=== PATIENT | female | born 1995 | race Caucasian/White ===

== ENCOUNTER 2016-09-02 13:44 | Emergency (ER) | payer BC ==
[~2016-09-02] VITALS: Ht 157.5 cm; Wt 66.1 kg
[~2016-09-02 13:44] MED LIST: ALBU1AER9 INH
[2016-09-02 13:49] VITALS: Ht 157.5 cm; Wt 66.1 kg
[2016-09-02] MEDS ORDERED: ALBU18002 INH (13:57)
--- NOTE | 2016-09-02 15:15 | EMERGENCY ROOM VISIT NOTE ---
History Report prepared by Rubi: Jelani Bensno Under the Supervision of: Dr. Jeison Bocanegra M.D. First contact with patient: 15:05 Chief Complaint: VAGINAL BLEEDING Stated Complaint: 4 WKS PREG,BLEEDING/CRAMPING History of Present Illness The patient is a 21 year old female who presents to the Emergency Room with complaints of persistent vaginal bleeding beginning earlier today, She notes that she is 4 weeks and used a home test 3 days ago noting she was . This is her second ; she did not have any issues with her first or . She has been otherwise fine, but notes she was crampy this morning, and noticed some spotting this afternoon, but has not been using multiple pads. The patient denies any fevers, chills, recent trauma or falls, chest pain, shortness of breath, or any urinary symptoms. She admits to having some nausea. She notes she followed with [facility] for her last . She reports her last period was about 1 month ago. Source of History: patient Onset: this afternoon Position: other (vagina) Quality: other (vaginal bleeding) Timing: other (persistent) Associated Symptoms: + nausea, No SOB, No chest pain, No chills, No fevers, No urinary symptoms Review of Systems See HPI for pertinent positives & negatives. A total of 10 systems reviewed and were otherwise negative. Past Medical & Surgical Medical Problems: (1) ASTHMA, UNSPECIFIED (2) Panic attack (3) TOBACCO USE DISORDER Family History No significant family history Social History Smoking Status: Current Every Day Smoker Alcohol Use: none Marital Status: single Occupation Status: employed Current/Historical Medications Scheduled Albuterol Sulfate (Proair Respiclick), 2 PUFF INH QID Allergies Coded Allergies: Dust (Unverified Allergy, Unknown, UNKNOWN, 09/02/16) POLLEN (Unverified Allergy, Unknown, UNKNOWN, 09/02/16) Physical Exam Vital Signs Date Time Temp Pulse Resp B/P Pulse Ox O2 Delivery O2 Flow Rate FiO2 09/02/16 17:30 37.0 74 18 107/55 100 09/02/16 17:14 74 18 107/55 100 Room Air 09/02/16 15:20 77 18 104/59 100 Room Air 09/02/16 13:49 37.0 91 18 107/75 99 Room Air Physical Exam GENERAL: Patient is well appearing and in minimal distress. HEENT: No acute trauma, normocephalic atraumatic, mucous membranes moist, no nasal congestion, no scleral icterus. NECK: No stridor, no adenopathy, no meningismus, trachea is midline. LUNGS: No dyspnea. Clear to auscultation and equal bilaterally. No wheeze, no rhonchi. HEART: Regular rate and rhythm. No murmurs, rubs, gallops appreciated. ABDOMEN: Soft, nontender, bowel sounds positive, no masses appreciated, no peritonitis. BACK: No midline tenderness, no CVA tenderness EXTREMITIES: Normal motion all extremities, no cyanosis, no edema. NEUROLOGIC: Alert and oriented, no acute motor or sensory deficits, no focal weakness, cranial nerves grossly intact. SKIN: No rash, no jaundice, no diaphoresis. Medical Decision & Procedures ER Provider Diagnostic Interpretation: Radiology results and stated below per my review and radiologist interpretation: <14 WKS SINGLE ULTRASOUND FINDINGS: The uterus is retroflexed. Otherwise, the uterus and ovaries are within normal limits. The endometrial stripe measures 6 mm in thickness. No adnexal masses. No intrauterine gestational sac identified. Trace pelvic free fluid. IMPRESSION: Normal uterus and ovaries. No evidence for an intrauterine gestational sac. Trace pelvic free fluid. In the setting of a positive test this could represent an early intrauterine , nonvisualized ectopic , or recent spontaneous . Correlation with beta-hCG and/or pelvic ultrasound follow-up is recommended. Electronically signed by: Marcus Juarez M.D. 09/02/2016 4:41 PM Dictated Date/Time: 09/02/2016 4:38 PM Laboratory Results 09/02/16 15:26 Red Blood Count 4.33, Mean Corpuscular Volume 92.1, Mean Corpuscular Hemoglobin 31.9, Mean Corpuscular Hemoglobin Concent 34.6, Mean Platelet Volume 9.5, Neutrophils (%) (Auto) 59.0, Lymphocytes (%) (Auto) 29.5, Monocytes (%) (Auto) 6.9, Eosinophils (%) (Auto) 3.9, Basophils (%) (Auto) 0.5, Neutrophils # (Auto) 5.13, Lymphocytes # (Auto) 2.56, Monocytes # (Auto) 0.60, Eosinophils # (Auto) 0.34, Basophils # (Auto) 0.04 09/02/16 15:26 Test 09/02/16 14:20 09/02/16 15:26 Urine Color YELLOW Urine Appearance CLEAR (CLEAR) Urine pH 5.0 (4.5-7.5) Urine Specific [place] 1.023 (1.000-1.030) Urine Protein NEG (NEG) Urine Glucose (UA) NEG (NEG) Urine Ketones NEG (NEG) Urine Occult Blood 3+ (NEG) Urine Nitrite NEG (NEG) Urine Bilirubin NEG (NEG) Urine Urobilinogen NEG (NEG) Urine Leukocyte Esterase TRACE (NEG) Urine WBC (Auto) 1-5 /hpf (0-5) Urine RBC (Auto) 5-10 /hpf (0-4) Urine Hyaline Casts (Auto) 1-5 /lpf (0-5) Urine Epithelial Cells (Auto) >30 /lpf (0-5) Urine Bacteria (Auto) NEG (NEG) Urine Yeast (Auto) PRESENT (NONE PRSENT) Urine Test POS (NEG) White Blood Count 8.69 K/uL (4.8-10.8) Red Blood Count 4.33 M/uL (4.2-5.4) Hemoglobin 13.8 g/dL (12.0-16.0) Hematocrit 39.9 % (37-47) Mean Corpuscular Volume 92.1 fL (80-100) Mean Corpuscular Hemoglobin 31.9 pg (25-34) Mean Corpuscular Hemoglobin Concent 34.6 g/dl (32-36) Platelet Count 238 K/uL (130-400) Mean Platelet Volume 9.5 fL (7.4-10.4) Neutrophils (%) (Auto) 59.0 % Lymphocytes (%) (Auto) 29.5 % Monocytes (%) (Auto) 6.9 % Eosinophils (%) (Auto) 3.9 % Basophils (%) (Auto) 0.5 % Neutrophils # (Auto) 5.13 K/uL (1.4-6.5) Lymphocytes # (Auto) 2.56 K/uL (1.2-3.4) Monocytes # (Auto) 0.60 K/uL (0.11-0.59) Eosinophils # (Auto) 0.34 K/uL (0-0.5) Basophils # (Auto) 0.04 K/uL (0-0.2) RDW Standard Deviation 42.4 fL (36.4-46.3) RDW Coefficient of Variation 12.4 % (11.5-14.5) Immature Granulocyte % (Auto) 0.2 % Immature Granulocyte # (Auto) 0.02 K/uL (0.00-0.02) Anion Gap 5.0 mmol/L (3-11) Est Creatinine Clear Calc Drug Dose 94.0 ml/min Estimated GFR () 115.2 Estimated GFR (Non- 99.4 BUN/Creatinine Ratio 12.1 (10-20) Calcium Level 8.3 mg/dl (8.5-10.1) Human Chorionic Gonadotropin, Quant 201 mIU/mL Laboratory results as reviewed by me. ED Course 1506: The patient was evaluated in room A3. A complete history and physical exam was performed. 1722: The patient is requesting to be discharged, and notes she needs to leave. 1725: Reevaluated the patient. Discussed results and discharge instructions: She verbalized understanding and agreement. The patient is ready for discharge. Medical Decision Differential: Menstrual Bleeding, Miscarriage, Ectopic , Bleeding Dyscrasia, amongst other pathologies entertained. 21 yr old female with one previous uncomplicated arrives with complaint of light vaginal spotting with positive test 3 days ago. HCG is only 200 and no IUP noted. No free fluid noted on US either. Suspect this is very early or miscarriage. I do not believe this is ectopic but clearly it is very early and no IUP noted thus instructions with patient. No evidence ongoing infection. A+ Blood type. 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 Aware that it is a very busy post football game weekend and thus the slight delays in testing. She is aware she must follow up with PCP or OB in next 2-3 days for repeat evaluation, and RTED immediately if worsening or other concerns. Stable and walking around room requesting discharge. Impression Primary Impression: Vaginal bleeding in Scribe Attestation The scribe's documentation has been prepared under my direction and personally reviewed by me in its entirety. I confirm that the note above accurately reflects all work, treatment, procedures, and medical decision making performed by me. Departure Information Dispostion Home / Self-Care Referrals No Doctor, Assigned (PCP) Patient Instructions Bleeding Early Preg, My [facility] Additional Instructions You must follow up with your Primary Provider or your FLOOR COVERER provider in the next 2-3 days for repeat blood testing and further evaluation. Return immediately if severe pain, heavy bleeding, passing out or other concerns. We are always here to help. Problem Qualifiers Primary Impression: Vaginal bleeding in Trimester: first trimester Qualified Codes: O46.91 - Antepartum hemorrhage, unspecified, first trimester
[2016-09-02 15:27] LABS: URINE APPEARANCE CLEAR (CLEAR); URINE BILIRUBIN NEG (NEG); URINE COLOR YELLOW; URINE EPITHELIAL CELL AUTO >30 /lpf (0-5); URINE NITRITE NEG (NEG); URINE SPECIFIC GRAVITY 1.023 (1.000-1.030); UROBILINOGEN NEG (NEG); ZZUR CULT IF INDIC CLEAN CATCH YES
[2016-09-02 15:30] LABS: MANUAL MICROSCOPIC REQUIRED? NO; REVIEW REQ? YES
[2016-09-02 15:36] LABS: BASO % 0.5 %; BASO ABS # 0.04 K/uL (0-0.2); COMPLETE YES; EOS % 3.9 %; HEMATOCRIT 39.9 % (37-47); IG% 0.2 %; LYMPH % 29.5 %; LYMPH ABS # 2.56 K/uL (1.2-3.4); MEAN CELL VOLUME 92.1 fL (80-100); MEAN CORPUSCULAR HEMOGLOBIN 31.9 pg (25-34); MEAN CORPUSCULAR HGB CONC 34.6 g/dl (32-36); MEAN PLATELET VOLUME 9.5 fL (7.4-10.4); MONO % 6.9 %; PLATELET COUNT 238 K/uL (130-400); RED BLOOD COUNT 4.33 M/uL (4.2-5.4); WHITE BLOOD COUNT 8.69 K/uL (4.8-10.8)
[2016-09-02 15:53] LABS: BUN/CREATININE RATIO 12.1 (10-20); CALCIUM 8.3 mg/dl (8.5-10.1); CREATININE 0.83 mg/dl (0.60-1.20); POTASSIUM 3.8 mmol/L (3.5-5.1)
--- NOTE | 2016-09-02 16:43 | DIAGNOSTIC IMAGING REPORT ---
<14 WKS SINGLE ULTRASOUND CLINICAL HISTORY: Vaginal bleeding early COMPARISON STUDY: ultrasound 06/26/2013. FINDINGS: The uterus is retroflexed. Otherwise, the uterus and ovaries are within normal limits. The endometrial stripe measures 6 mm in thickness. No adnexal masses. No intrauterine gestational sac identified. Trace pelvic free fluid. IMPRESSION: Normal uterus and ovaries. No evidence for an intrauterine gestational sac. Trace pelvic free fluid. In the setting of a positive test this could represent an early intrauterine , nonvisualized ectopic , or recent spontaneous . Correlation with beta-hCG and/or pelvic ultrasound follow-up is recommended. Electronically signed by: Marcus Juarez M.D. 09/02/2016 4:41 PM Dictated Date/Time: 09/02/2016 4:38 PM
[2016-09-02 17:30] VITALS: BP 107/55; PULSE 74; TEMP 37; O2SAT 100
== END 2016-09-02 17:31 | disposition home or self-care (01) ==
LOC: C.EDB 13:45 → C.EDA 17:31
DX: O46.91 Antepartum hemorrhage, unspecified, first trimester (principal); R11.0 Nausea; O99.511 Diseases of the respiratory system complicating pregnancy, first trimester; J45.909 Unspecified asthma, uncomplicated; O99.330 Smoking (tobacco) complicating pregnancy, unspecified trimester; Z3A.01 Less than 8 weeks gestation of pregnancy; F17.200 Nicotine dependence, unspecified, uncomplicated

== ENCOUNTER 2017-08-13 16:06 | Emergency (ER) | payer BC, OTHER ==
[~2017-08-13] VITALS: Ht 157.5 cm; Wt 65.4 kg
[~2017-08-13 16:06] MED LIST changes: +ALBU18002 INH; -ALBU1AER9 INH
[2017-08-13 16:09] VITALS: TEMP 37; Ht 157.5 cm; Wt 65.4 kg
[2017-08-13] MEDS ORDERED: MECLIZINE HCL 25 MG TAB PO STA (17:46)
[2017-08-13] MEDS ORDERED: SODIUM CHLORIDE 0.9% 1000ML 2,000 ML IV STA (17:46)
[2017-08-13] MEDS ORDERED: ONDANSETRON INJ 2 MG/ML 2 ML VIAL IV STA (17:46)
[2017-08-13 18:13] LABS: BASO % 0.5 %; BASO ABS # 0.06 K/uL (0-0.2); EOS % 2.2 %; EOS ABS # 0.24 K/uL (0-0.5); HEMATOCRIT 38.6 % (37-47); HEMOGLOBIN 13.6 g/dL (12.0-16.0); IG# 0.03 K/uL (0.00-0.02); LYMPH % 28.5 %; LYMPH ABS # 3.18 K/uL (1.2-3.4); MEAN CELL VOLUME 91.7 fL (80-100); MEAN CORPUSCULAR HEMOGLOBIN 32.3 pg (25-34); MEAN CORPUSCULAR HGB CONC 35.2 g/dl (32-36); MEAN PLATELET VOLUME 9.3 fL (7.4-10.4); MONO ABS # 0.78 K/uL (0.11-0.59); NEUT % 61.5 %; NEUT ABS # 6.86 K/uL (1.4-6.5); PLATELET COUNT 232 K/uL (130-400); RED CELL DISTRIBUTION WIDTH CV 13.1 % (11.5-14.5); RED CELL DISTRIBUTION WIDTH SD 43.7 fL (36.4-46.3); WHITE BLOOD COUNT 11.15 K/uL (4.8-10.8)
--- NOTE | 2017-08-13 18:13 | DIAGNOSTIC IMAGING REPORT ---
CHEST ONE VIEW PORTABLE HISTORY: DIZZY COMPARISON: Chest 09/13/2014. FINDINGS: The lungs are clear. Cardiac silhouette is normal in size. No pleural effusions. No pneumothorax. IMPRESSION: No acute process. Electronically signed by: Marcus Juarez M.D. 08/13/2017 6:12 PM Dictated Date/Time: 08/13/2017 6:10 PM
[2017-08-13 18:29] LABS: CALCIUM 8.9 mg/dl (8.5-10.1); CREATININE 0.69 mg/dl (0.60-1.20); POTASSIUM 3.8 mmol/L (3.5-5.1)
--- NOTE | 2017-08-13 18:38 | DIAGNOSTIC IMAGING REPORT ---
HEAD CT NONCONTRAST CT DOSE: 601.98 mGy.cm HISTORY: DIZZY TECHNIQUE: Multiaxial CT images of the head were performed without the use of intravenous contrast. Automated exposure control was utilized for this study. A dose lowering technique was utilized adhering to the principles of ALARA. Comparison: None. Findings: The paranasal sinuses and mastoid air cells are clear. The calvarium and skull base are intact. The ventricles and sulci are within normal limits. There is no mass, hematoma, midline shift, or acute infarct. Impression: No acute intracranial abnormality. Electronically signed by: Marcus Juarez M.D. 08/13/2017 6:37 PM Dictated Date/Time: 08/13/2017 6:32 PM
[2017-08-13] MEDS ORDERED: MECL-91 PEG (19:02)
[2017-08-13 19:13] VITALS: BP 119/75; PULSE 84; O2SAT 100
--- NOTE | 2017-08-13 20:21 | EMERGENCY ROOM VISIT NOTE ---
History Report prepared by Rubi: Abelardo Cohen Under the Supervision of: Dr. Zay Dunn D.O. First contact with patient: 17:39 Chief Complaint: DIZZY Stated Complaint: DIZZY, NAUSEOUS, BLURRY VISION History of Present Illness The patient is a 22 year old female who presents to the Emergency Room with complaints of persistent dizziness/lightheadedness that began this afternoon at 1400, 3.5 hours ago. The patient describes her dizziness as "feeling like I am going to pass out." She also notes some vision irregularities that she describes as everything in her field of vision moving. The patient notes that her dizziness is worsened with changes in position. She has had episodes very similar to this years ago, and notes that she does have a diagnosis for her dizziness. She cannot remember what this diagnosis is. She denies any chest pain , shortness of breath, urinary symptoms, or vomiting, but she has been nauseous. Source of History: patient Onset: 3.5 hours ago Position: head Quality: other (Dizzy/lightheadedness) Timing: other (Persistent) Modifying Factors (Worsening): other (changes in position) Associated Symptoms: + nausea, No chest pain, No SOB, No vomiting Review of Systems See HPI for pertinent positives & negatives. A total of 10 systems reviewed and were otherwise negative. Past Medical & Surgical Medical Problems: (1) ASTHMA, UNSPECIFIED (2) Panic attack (3) TOBACCO USE DISORDER Family History No significant family history Social History Smoking Status: Current Every Day Smoker Alcohol Use: none Marital Status: single Occupation Status: employed Current/Historical Medications Scheduled Albuterol Sulfate (Proair Respiclick), 2 PUFF INH QID Meclizine HCl (Meclizine 25), 25 MG PEG TID Allergies Coded Allergies: Dust (Unverified Allergy, Unknown, UNKNOWN, 09/02/16) POLLEN (Unverified Allergy, Unknown, UNKNOWN, 09/02/16) Physical Exam Vital Signs Date Time Temp Pulse Resp B/P (MAP) Pulse Ox O2 Delivery O2 Flow Rate FiO2 08/13/17 19:13 84 18 119/75 100 Room Air 08/13/17 18:13 82 18 126/79 98 Room Air 08/13/17 16:09 37.0 108 16 121/76 100 Room Air Physical Exam GENERAL: Sitting up in bed, alert, well appearing, well nourished, no distress, non-toxic EYE EXAM: normal conjunctiva. PERRL and EOM's intact. No Nystagmus. HEAD: Symptoms are significantly worsened with laying flat and rotation of head to the right. OROPHARYNX: no exudate, no erythema, lips, buccal mucosa, and tongue normal and mucous membranes are moist NECK: supple, no nuchal rigidity, no adenopathy, non-tender LUNGS: Clear to auscultation. Normal chest wall mechanics HEART: no murmurs, S1 normal and S2 normal ABDOMEN: abdomen soft, non-tender, normo-active bowel sounds, no masses, no rebound or guarding. BACK: Back is symmetrical on inspection and there is no deformity, no midline tenderness, no CVA tenderness. SKIN: no rashes and no bruising UPPER EXTREMITIES: upper extremities are grossly normal. LOWER EXTREMITIES: No pitting edema. NEURO EXAM: Normal sensorium, cranial nerves II-XII intact, normal speech, no weakness of arms, no weakness of legs. No drift. Finger to nose intact. Gross sensation intact. Ambulates without difficulty. Medical Decision & Procedures ER Provider Diagnostic Interpretation: Radiology results as stated below per my review and the radiologist's interpretation: HEAD CT NONCONTRAST CT DOSE: 601.98 mGy.cm HISTORY: DIZZY TECHNIQUE: Multiaxial CT images of the head were performed without the use of intravenous contrast. Automated exposure control was utilized for this study. A dose lowering technique was utilized adhering to the principles of ALARA. Comparison: None. Findings: The paranasal sinuses and mastoid air cells are clear. The calvarium and skull base are intact. The ventricles and sulci are within normal limits. There is no mass, hematoma, midline shift, or acute infarct. Impression: No acute intracranial abnormality. Electronically signed by: Marcus Juarez M.D. 08/13/2017 6:37 PM Dictated Date/Time: 08/13/2017 6:32 PM CHEST ONE VIEW PORTABLE HISTORY: DIZZY COMPARISON: Chest 09/13/2014. FINDINGS: The lungs are clear. Cardiac silhouette is normal in size. No pleural effusions. No pneumothorax. IMPRESSION: No acute process. Electronically signed by: Marcus Juarez M.D. 08/13/2017 6:12 PM Dictated Date/Time: 08/13/2017 6:10 PM Laboratory Results 08/13/17 18:00 Red Blood Count 4.21, Mean Corpuscular Volume 91.7, Mean Corpuscular Hemoglobin 32.3, Mean Corpuscular Hemoglobin Concent 35.2, Mean Platelet Volume 9.3, Neutrophils (%) (Auto) 61.5, Lymphocytes (%) (Auto) 28.5, Monocytes (%) (Auto) 7.0, Eosinophils (%) (Auto) 2.2, Basophils (%) (Auto) 0.5, Neutrophils # (Auto) 6.86, Lymphocytes # (Auto) 3.18, Monocytes # (Auto) 0.78, Eosinophils # (Auto) 0.24, Basophils # (Auto) 0.06 08/13/17 18:00 Test 08/13/17 18:00 White Blood Count 11.15 K/uL (4.8-10.8) Red Blood Count 4.21 M/uL (4.2-5.4) Hemoglobin 13.6 g/dL (12.0-16.0) Hematocrit 38.6 % (37-47) Mean Corpuscular Volume 91.7 fL (80-100) Mean Corpuscular Hemoglobin 32.3 pg (25-34) Mean Corpuscular Hemoglobin Concent 35.2 g/dl (32-36) Platelet Count 232 K/uL (130-400) Mean Platelet Volume 9.3 fL (7.4-10.4) Neutrophils (%) (Auto) 61.5 % Lymphocytes (%) (Auto) 28.5 % Monocytes (%) (Auto) 7.0 % Eosinophils (%) (Auto) 2.2 % Basophils (%) (Auto) 0.5 % Neutrophils # (Auto) 6.86 K/uL (1.4-6.5) Lymphocytes # (Auto) 3.18 K/uL (1.2-3.4) Monocytes # (Auto) 0.78 K/uL (0.11-0.59) Eosinophils # (Auto) 0.24 K/uL (0-0.5) Basophils # (Auto) 0.06 K/uL (0-0.2) RDW Standard Deviation 43.7 fL (36.4-46.3) RDW Coefficient of Variation 13.1 % (11.5-14.5) Immature Granulocyte % (Auto) 0.3 % Immature Granulocyte # (Auto) 0.03 K/uL (0.00-0.02) Anion Gap 8.0 mmol/L (3-11) Est Creatinine Clear Calc Drug Dose 111.6 ml/min Estimated GFR () 141.2 Estimated GFR (Non- 121.8 BUN/Creatinine Ratio 23.1 (10-20) Calcium Level 8.9 mg/dl (8.5-10.1) Laboratory results per my review. Medications Administered Medications (Trade) Dose Ordered Sig/Nelson Route Start Time Stop Time Status Last Admin Dose Admin Sodium Chloride 2,000 ml @ 999 mls/hr Q2H1M STAT IV 08/13/17 17:46 08/13/17 19:18 DC 08/13/17 18:00 999 MLS/HR Ondansetron HCl (Zofran Inj) 4 mg NOW STAT IV 08/13/17 17:46 08/13/17 17:48 DC 08/13/17 18:00 4 MG Meclizine HCl (Antivert Tab) 25 mg NOW STAT PO 08/13/17 17:46 08/13/17 17:48 DC 08/13/17 18:00 25 MG ECG Per My Interpretation Indication: other (Dizziness) Rate (beats per minute): 72 Rhythm: sinus rhythm Findings: other (Normal axis, no PVCs) ED Course ED COURSE: Vital signs were reviewed and showed tachycardic. The patients medical record was reviewed The above diagnostic studies were performed and reviewed. ED treatments and interventions as stated above. 0: The patient was evaluated in room A12B. A complete history and physical examination was performed. 1745: Ordered Antivert Tab 24 mg PO, Zofran 4 mg IV, Sodium Chloride 2000 mL @ 999 mL/hr IV. 0: Upon reevaluation, the patient is feeling much better.I discussed my findings with the patient and she understands and agrees with the treatment plan. Based on the patients age, coexisting illnesses, exam and lab findings the decision to treat as an outpatient was made. The patient remained stable while under my care. The patient appeared well at the time of discharge. Medical Decision Differential diagnosis includes etiologies such as benign positional vertigo, dehydration, hypovolemia, anemia, tumor, infection, hypoglycemia, electrolyte abnormalities, cardiac sources, intracerebral event, toxicologic, neurologic, as well as others were entertained. Patient is a 22-year-old female who presents the ER with positional dizziness and lightheadedness. She is completely neurologically intact. Symptoms are reproducible on exam. IV was established CBC and BMP are unremarkable. She is given Antivert and fluids. She has significant improvement in her symptoms. EKG unremarkable. CT head was negative. Patient was able to ambulate without difficulty. Patient was updated at bedside discharge follow-up PCP as an outpatient. I do not believe that this is central in nature. Do favor peripheral vertigo. Do not believe this to be cardiac based on HPI. Discussed with Pt concerning signs and symptoms to watch out for. Pt was instructed to follow up with their PCP and discussed with the patient their option to return to the ED at anytime for persistent or worsening symptoms. The appropriate anticipatory guidance and out-patient management, including indications for return to the emergency department, were explained at length to the patient and understood. Medication Reconcilliation Current Medication List: was personally reviewed by me Blood Pressure Screening Patient's blood pressure: Normal blood pressure Impression Primary Impression: BPV (benign positional vertigo) Scribe Attestation The scribe's documentation has been prepared under my direction and personally reviewed by me in its entirety. I confirm that the note above accurately reflects all work, treatment, procedures, and medical decision making performed by me. Departure Information Dispostion Home / Self-Care Prescriptions Meclizine HCl (Meclizine 25) 25 Mg Tab 25 MG PEG TID for dizzy, #30 Prov: Zay Dunn, DO 08/13/17 Referrals No Doctor, Assigned (PCP) Forms HOME CARE DOCUMENTATION FORM, IMPORTANT VISIT INFORMATION Patient Instructions My [facility] Additional Instructions Please follow up with your primary care doctor with in the next 24 hours. Any worsening of your symptoms, please return to the ED immediately. This includes any fevers greater than 100.4, worsening pain, chest pain, shortness breath, persistent nausea, vomiting, unable to eat or drink, or any other concerning signs or symptoms from your standpoint. Problem Qualifiers Primary Impression: BPV (benign positional vertigo) Laterality: unspecified laterality Qualified Codes: H81.10 - Benign paroxysmal vertigo, unspecified ear
== END 2017-08-13 19:14 | disposition home or self-care (01) ==
LOC: C.EDB 16:08 → C.EDA 19:14
DX: H81.10 Benign paroxysmal vertigo, unspecified ear (principal); J45.909 Unspecified asthma, uncomplicated; F17.200 Nicotine dependence, unspecified, uncomplicated; Z91.048 Other nonmedicinal substance allergy status

== ENCOUNTER 2021-03-27 12:34 | Observation (INO) ==
[2021-03-27] MEDS ORDERED: SODIUM CHLORIDE 0.9% 500 ML IV STA (12:46)
--- NOTE | 2021-03-27 13:11 | Emergency Department Note ---
History of Present Illness General Chief complaint: Abdominal Pain Stated complaint: 7.5 WEEKS /SEVERE ABDOMINAL PAIN Time Seen by Provider: 03/27/21 12:59 Source: patient History of Present Illness Provider Complaint: + vaginal bleeding Onset (ago): hour(s) (13) Location: + LLQ Severity: severe Maximum Pain Intensity: 10 Current Pain Intensity: 10 Quality: + Sharp Duration: constant and progressively worsening Relieved By: + none Exacerbated By: + none Urinary symptoms: + None Vaginal discharge: + blood Patient Confirmed : Yes Associated symptoms: + vaginal bleeding and + abdominal pain; no nausea/vomiting, no fever/chills, no headaches, no rash, no seizure or no syncope Related Data : 4 Total number of abortions (spontaneous and elective): 3 Home Medications Medication Instructions Recorded Confirmed Type albuterol sulfate 90 mcg/actuation 2 puff INHALATION QID PRN 09/09/19 09/16/19 History aerosol inhaler Allergies Allergy/AdvReac Type Severity Reaction Status Date / Time pollen extracts Allergy Unknown UNKNOWN Unverified 09/16/19 11:55 Dust Allergy Unknown UNKNOWN Uncoded 09/16/19 11:55 Past Med/Surg History Medical History Encounter for pre-operative examination No pertinent family history No significant past medical history Surgical History No significant past surgical history Social History Smoking Status: Former smoker Hx Alcohol Use: No Hx Substance Use: No Preferred Language: Polish marital status: Single Current Living Situation: Family current occupational status: employed Feels Safe at Home: Yes Review of Systems A total of 10 systems reviewed and were otherwise negative Physical Exam Vital Signs: Vital Signs - 24 hr 03/27/21 12:41 03/27/21 13:40 03/27/21 13:45 Temperature 35.9 C L Temperature Source Temporal Artery Sc an Pulse Rate 96 H 93 H Pulse Rate [Apical ] 100 H Pulse Rate [Finger ] Pulse Rate from Sp O2 Sensor 93 H Pulse Rhythm [Fing er] Pulse Strength [Fi nger] Respiratory Rate 20 16 25 H Respiratory Effort / Characteristics Non-Labored Sponta neous Respiratory Depth Normal Respiratory Patter n Regular Blood Pressure 92/44 L 126/63 Blood Pressure [Ri ght Arm] 120/67 Blood Pressure Radha n 60 84 Blood Pressure Radha n [Right Arm] 84 Blood Pressure Pos ition Sitting Blood Pressure Pos ition [Right Arm] Pulse Oximetry 100 100 100 Oxygen Delivery Me thod Room Air Sepsis Recent Feve r Within 48 Hours No Sepsis New/Unexpla ined Change in Men gabino Status No Sepsis Action Take n by Nursing No Action Required 03/27/21 13:50 03/27/21 14:36 03/27/21 14:50 Temperature 36.6 C 36.8 C Temperature Source Oral Oral Pulse Rate 97 H 102 H Pulse Rate [Apical ] Pulse Rate [Finger ] 106 H Pulse Rate from Sp O2 Sensor 95 H Pulse Rhythm [Fing er] Regular Pulse Strength [Fi nger] Normal Respiratory Rate 22 16 22 Respiratory Effort / Characteristics Non-Labored Sponta neous Respiratory Depth Normal Respiratory Patter n Regular Blood Pressure 123/69 104/67 Blood Pressure [Ri ght Arm] 92/58 L Blood Pressure Radha n 87 79 Blood Pressure Radha n [Right Arm] 69 Blood Pressure Pos ition Lying Blood Pressure Pos ition [Right Arm] Lying Pulse Oximetry 100 100 100 Oxygen Delivery Me thod Room Air Sepsis Recent Feve r Within 48 Hours Sepsis New/Unexpla ined Change in Men gabino Status Sepsis Action Take n by Nursing Physical Exam: Physical Exam GENERAL: Severely distressed. HENT: Exam performed. -Head: Normocephalic and atraumatic. -Right Ear: External ear normal. No mastoid tenderness. -Left Ear: External ear normal. No mastoid tenderness. -Mouth/Throat: The oropharynx is clear and moist. No trismus in the jaw. No dental abscesses or uvula swelling. No oropharyngeal exudate or tonsillar abscesses. EYES: Conjunctivae and EOM are normal. Pupils are equal, round, and reactive to light. Right eye exhibits no discharge. Left eye exhibits no discharge. No scleral icterus. NECK: Normal range of motion. Neck supple. No JVD present. No spinous process tenderness present. No carotid bruit present. No rigidity. No tracheal deviation and normal range of motion present. No Brudzinski's sign and no Kernig's sign noted. CV: Tachycardic rate, regular rhythm, normal heart sounds and intact distal pulses. There is no peripheral edema. Palpable radial pulses bue. PULM/CHEST: Effort normal and breath sounds normal. No respiratory distress. No stridor. She has no wheezes. She has no rales. -Chest Wall: She exhibits no tenderness. ABD: Guarding over the left lower quadrant. Pain on palpation of the left lower quadrant. Rebound tenderness. MUSC/SKEL: Normal range of motion. There is no peripheral edema, tenderness or deformity. LYMPH: No cervical adenopathy. NEURO: She is alert and oriented to person, place, and time. She has normal strength. No cranial nerve deficit or sensory deficit. Coordination and gait normal. GCS eye subscore is 4. GCS verbal subscore is 5. GCS motor subscore is 6. Cerebellar tests wnl. SKIN: Pale PSYCH: She has a normal mood and affect. Behavior is normal. Judgment and thought content normal. Course Course 1259: The patient was evaluated in room B2. A complete history and physical exam was performed Cardiac monitoring: An order was placed for continuous cardiac monitoring. The monitor shows a rate of 110 with sinus tachycardia rhythm Patient was found to be hypotensive and extremely pale. On exam she had peritoneal signs. Bedside ultrasound performed by me showed free fluid in the right upper quadrant. Patient was immediately moved to room B1 and we are concerned for ruptured ectopic . 1311: Spoke with [facility] Dr. Pringle who agrees with volume resuscitation he will be down to evaluate the patient. pharmacy order entry technician called to perform bedside ultrasound in the resuscitation bay. 1340: Patient blood pressure improved with IV hydration. Formal ultrasound done by oil field technician does confirm free fluid in the right upper quadrant and there is likely a left lower quadrant tubal . 1431: Patient hypotensive. Blood ordered and will have tach go and get blood fr om the blood bank. Dr. Parker at bedside and planning on taking the patient to the OR. Administered Medications Discontinued Medications Fentanyl Citrate (Fentanyl Citrate 100 Mcg/2 Ml Vial) 50 mcg IV NOW STA Stop: 03/27/21 13:18 Last Admin: 03/27/21 13:23 Dose: 50 mcg Documented by: [id number] Fentanyl Citrate (Fentanyl Citrate 100 Mcg/2 Ml Vial) Confirm Administered Dose 100 mcg .ROUTE .STK-MED ONE Stop: 03/27/21 13:20 Last Admin: 03/27/21 13:45 Dose: Not Given Documented by: [id number] Fentanyl Citrate (Fentanyl Citrate 100 Mcg/2 Ml Vial) 50 mcg IV NOW STA Stop: 03/27/21 14:00 Last Admin: 03/27/21 14:08 Dose: 50 mcg Documented by: [id number] Sodium Chloride (Nss) 500 mls @ 999 mls/hr IV .Q31M STA Stop: 03/27/21 13:16 Last Admin: 03/27/21 13:38 Dose: 999 mls/hr Documented by: [id number] Ondansetron HCl (Ondansetron Inj 2 Mg/Ml 2 Ml Vial) 4 mg IV NOW STA Stop: 03/27/21 13:18 Last Admin: 03/27/21 13:23 Dose: 4 mg Documented by: [id number] Ondansetron HCl (Ondansetron Inj 2 Mg/Ml 2 Ml Vial) Confirm Administered Dose 4 mg .ROUTE .STK-MED ONE Stop: 03/27/21 13:20 Last Admin: 03/27/21 13:45 Dose: Not Given Documented by: [id number] Medical Decision Making Laboratory Data Result diagrams: 03/27/21 13:05 03/27/21 13:05 Lab Results 03/27/21 03/27/21 03/27/21 Range/Units 13:05 13:05 13:05 WBC 20.76 H (4.8-10.8) K/uL RBC 3.73 L (4.2-5.4) M/uL Hgb 11.6 L (12.0-16.0) g/dL POC Hgb (12.0-16.0) g/dl Hct 34.5 L (37-47) % POC Hct (37-47) % MCV 92.5 (80-100) fL MCH 31.1 (25-34) pg MCHC 33.6 (32-36) g/dL RDW Std Deviation 42.5 (36.4-46.3) fL RDW Coeff of Renard 12.6 (11.5-14.5) % Plt Count 267 (130-400) K/uL MPV 9.1 (7.4-10.4) fL Immature Gran % (Auto) 0.4 % Neut % (Auto) 87.9 % Lymph % (Auto) 6.3 % [place] % (Auto) 5.0 % Eos % (Auto) 0.2 % Baso % (Auto) 0.2 % Neut # (Auto) 18.25 H (1.4-6.5) K/uL Lymph # (Auto) 1.31 (1.2-3.4) K/uL [place] # (Auto) 1.03 H (0.11-0.59) K/uL Eos # (Auto) 0.05 (0-0.5) K/uL Baso # (Auto) 0.04 (0-0.2) K/uL Immature Gran # (Auto) 0.08 H (0.00-0.02) K/uL PT (9.0-12.0) Seconds INR (0.9-1.1) APTT (21.0-31.0) Seconds PTT Ratio POC Sodium (135-144) mmol/L Sodium 136 (136-145) mmol/L POC Potassium (3.3-5.0) mmol/L Potassium 3.7 (3.5-5.1) mmol/L POC Chloride (101-112) mmol/L Chloride 106 (98-107) mmol/L Carbon Dioxide 22 (21-32) mmol/L POC Total CO2 (24-31) mmol/L Anion Gap 9.0 (3-11) POC Anion Gap (16-25) mmol/L POC BUN (7-18) mg/dl BUN 11 (7-18) mg/dl Creatinine 0.80 (0.6-1.2) mg/dl POC Creatinine (0.6-1.3) mg/dl Est Cr Clr Drug Dosing Not Reportable Est GFR ( Amer) 116.3 ml/min Est GFR (Non-Af Amer) 100.3 ml/min BUN/Creatinine Ratio 13.1 (10-20) Glucose 121 H (70-99) mg/dl POC Glucose (other) (70-99) mg/dl Calcium 9.0 (8.5-10.1) mg/dl POC Ioniz Calcium Carlos (1.12-1.32) mmol/l Total Bilirubin 0.5 (0.2-1) mg/dl AST 13 L (15-37) U/L ALT 29 (12-78) U/L Alkaline Phosphatase 54 (45-117) U/L Total Protein 6.7 (6.4-8.2) gm/dl Albumin 3.5 (3.4-5.0) gm/dl Globulin 3.2 (2.5-4.0) gm/dl Albumin/Globulin Ratio 1.1 (0.9-2) Lipase 58 L (73-393) U/L HCG, Quant mIU/ml Urine Color Urine Appearance (Clear) Urine pH (4.5-7.5) Ur Specific [place] (1.000-1.030) Urine Protein (Negative) Urine Glucose (UA) (Negative) Urine Ketones (Negative) Urine Blood (Negative) Urine Nitrite (Negative) Urine Bilirubin (Negative) Urine Urobilinogen (Negative) Ur Leukocyte Esterase (Negative) Urine WBC (Auto) (0-5) /hpf Urine RBC (Auto) (0-4) /hpf U Hyaline Cast (Auto) (0-5) /lpf U Epithel Cells (Auto) (0-5) /lpf Urine Bacteria (Auto) (Negative) COVID-19 Eval Order SARS-CoV-2 (PCR) (Negative) Blood Type A Positive Antibody Screen NEGATIVE Crossmatch See Detail 03/27/21 03/27/21 03/27/21 Range/Units 13:05 13:05 13:15 WBC (4.8-10.8) K/uL RBC (4.2-5.4) M/uL Hgb (12.0-16.0) g/dL POC Hgb 11.6 L (12.0-16.0) g/dl Hct (37-47) % POC Hct 34 L (37-47) % MCV (80-100) fL MCH (25-34) pg MCHC (32-36) g/dL RDW Std Deviation (36.4-46.3) fL RDW Coeff of Renard (11.5-14.5) % Plt Count (130-400) K/uL MPV (7.4-10.4) fL Immature Gran % (Auto) % Neut % (Auto) % Lymph % (Auto) % [place] % (Auto) % Eos % (Auto) % Baso % (Auto) % Neut # (Auto) (1.4-6.5) K/uL Lymph # (Auto) (1.2-3.4) K/uL [place] # (Auto) (0.11-0.59) K/uL Eos # (Auto) (0-0.5) K/uL Baso # (Auto) (0-0.2) K/uL Immature Gran # (Auto) (0.00-0.02) K/uL PT 10.3 (9.0-12.0) Seconds INR 1.0 (0.9-1.1) APTT 21.9 (21.0-31.0) Seconds PTT Ratio 0.8 POC Sodium 136 (135-144) mmol/L Sodium (136-145) mmol/L POC Potassium 4.0 (3.3-5.0) mmol/L Potassium (3.5-5.1) mmol/L POC Chloride 102 (101-112) mmol/L Chloride (98-107) mmol/L Carbon Dioxide (21-32) mmol/L POC Total CO2 21 L (24-31) mmol/L Anion Gap (3-11) POC Anion Gap 18.0 (16-25) mmol/L POC BUN 10 (7-18) mg/dl BUN (7-18) mg/dl Creatinine (0.6-1.2) mg/dl POC Creatinine 0.6 (0.6-1.3) mg/dl Est Cr Clr Drug Dosing Est GFR ( Amer) ml/min Est GFR (Non-Af Amer) ml/min BUN/Creatinine Ratio (10-20) Glucose (70-99) mg/dl POC Glucose (other) 118 H (70-99) mg/dl Calcium (8.5-10.1) mg/dl POC Ioniz Calcium Carlos 1.21 (1.12-1.32) mmol/l Total Bilirubin (0.2-1) mg/dl AST (15-37) U/L ALT (12-78) U/L Alkaline Phosphatase (45-117) U/L Total Protein (6.4-8.2) gm/dl Albumin (3.4-5.0) gm/dl Globulin (2.5-4.0) gm/dl Albumin/Globulin Ratio (0.9-2) Lipase (73-393) U/L HCG, Quant 39334 mIU/ml Urine Color Urine Appearance (Clear) Urine pH (4.5-7.5) Ur Specific [place] (1.000-1.030) Urine Protein (Negative) Urine Glucose (UA) (Negative) Urine Ketones (Negative) Urine Blood (Negative) Urine Nitrite (Negative) Urine Bilirubin (Negative) Urine Urobilinogen (Negative) Ur Leukocyte Esterase (Negative) Urine WBC (Auto) (0-5) /hpf Urine RBC (Auto) (0-4) /hpf U Hyaline Cast (Auto) (0-5) /lpf U Epithel Cells (Auto) (0-5) /lpf Urine Bacteria (Auto) (Negative) COVID-19 Eval Order SARS-CoV-2 (PCR) (Negative) Blood Type Antibody Screen Crossmatch 03/27/21 03/27/21 03/27/21 Range/Units 13:33 13:33 13:43 WBC (4.8-10.8) K/uL RBC (4.2-5.4) M/uL Hgb (12.0-16.0) g/dL POC Hgb (12.0-16.0) g/dl Hct (37-47) % POC Hct (37-47) % MCV (80-100) fL MCH (25-34) pg MCHC (32-36) g/dL RDW Std Deviation (36.4-46.3) fL RDW Coeff of Renard (11.5-14.5) % Plt Count (130-400) K/uL MPV (7.4-10.4) fL Immature Gran % (Auto) % Neut % (Auto) % Lymph % (Auto) % [place] % (Auto) % Eos % (Auto) % Baso % (Auto) % Neut # (Auto) (1.4-6.5) K/uL Lymph # (Auto) (1.2-3.4) K/uL [place] # (Auto) (0.11-0.59) K/uL Eos # (Auto) (0-0.5) K/uL Baso # (Auto) (0-0.2) K/uL Immature Gran # (Auto) (0.00-0.02) K/uL PT (9.0-12.0) Seconds INR (0.9-1.1) APTT (21.0-31.0) Seconds PTT Ratio POC Sodium (135-144) mmol/L Sodium (136-145) mmol/L POC Potassium (3.3-5.0) mmol/L Potassium (3.5-5.1) mmol/L POC Chloride (101-112) mmol/L Chloride (98-107) mmol/L Carbon Dioxide (21-32) mmol/L POC Total CO2 (24-31) mmol/L Anion Gap (3-11) POC Anion Gap (16-25) mmol/L POC BUN (7-18) mg/dl BUN (7-18) mg/dl Creatinine (0.6-1.2) mg/dl POC Creatinine (0.6-1.3) mg/dl Est Cr Clr Drug Dosing Est GFR ( Amer) ml/min Est GFR (Non-Af Amer) ml/min BUN/Creatinine Ratio (10-20) Glucose (70-99) mg/dl POC Glucose (other) (70-99) mg/dl Calcium (8.5-10.1) mg/dl POC Ioniz Calcium Carlos (1.12-1.32) mmol/l Total Bilirubin (0.2-1) mg/dl AST (15-37) U/L ALT (12-78) U/L Alkaline Phosphatase (45-117) U/L Total Protein (6.4-8.2) gm/dl Albumin (3.4-5.0) gm/dl Globulin (2.5-4.0) gm/dl Albumin/Globulin Ratio (0.9-2) Lipase (73-393) U/L HCG, Quant mIU/ml Urine Color Dark Yellow Urine Appearance Clear (Clear) Urine pH 6.5 (4.5-7.5) Ur Specific [place] 1.024 (1.000-1.030) Urine Protein Trace H (Negative) Urine Glucose (UA) Negative (Negative) Urine Ketones Trace H (Negative) Urine Blood Negative (Negative) Urine Nitrite Negative (Negative) Urine Bilirubin Negative (Negative) Urine Urobilinogen Negative (Negative) Ur Leukocyte Esterase Negative (Negative) Urine WBC (Auto) 1-5 (0-5) /hpf Urine RBC (Auto) 0-4 (0-4) /hpf U Hyaline Cast (Auto) 10-30 H (0-5) /lpf U Epithel Cells (Auto) >30 H (0-5) /lpf Urine Bacteria (Auto) Negative (Negative) COVID-19 Eval Order Covid19 at [facility] SARS-CoV-2 (PCR) NEGATIVE (Negative) Blood Type Antibody Screen Crossmatch MDM Narrative 1259: The patient was evaluated in room B2. A complete history and physical exam was performed Cardiac monitoring: An order was placed for continuous cardiac monitoring. The monitor shows a rate of 110 with sinus tachycardia rhythm Patient was found to be hypotensive and extremely pale. On exam she had peritoneal signs. Bedside ultrasound performed by me showed free fluid in the right upper quadrant. Patient was immediately moved to room B1 and we are concerned for ruptured ectopic . 1311: Spoke with [facility] Dr. Pringle who agrees with volume resuscitation he will be down to evaluate the patient. pharmacy order entry technician called to perform bedside ultrasound in the resuscitation bay. 1340: Patient blood pressure improved with IV hydration. Formal ultrasound done by oil field technician does confirm free fluid in the right upper quadrant and there is likely a left lower quadrant tubal . 1431: Patient hypotensive. Blood ordered and will have tach go and get blood from the blood bank. Dr. Parker at bedside and planning on taking the patient to the OR. Impression & Plan Hemoperitoneum due to rupture of left tubal ectopic Critical Care Time Critical Care Time: Yes Total Critical Care Time: 90 I have personally spent greater than 90 minutes of critical care time in the direct management of this patient. This includes bedside care, interpretation of diagnostic studies, and testing, discussion with consultants, patient, and family members, and other required patient management activities. This 90 minutes is in excess of all separately billable procedures. Discharge Plan Visit Data Chief Complaint: Abdominal Pain Stated Complaint: 7.5 WEEKS /SEVERE ABDOMINAL PAIN ED Provider: Ambrosio Hernandez Discharge Problem: Hemoperitoneum due to rupture of left tubal ectopic Patient Disposition: Admitted As Inpatient
[2021-03-27] MEDS ORDERED: SODIUM CHLORIDE 0.9% 250 ML IV PRN (13:12)
[2021-03-27] MEDS ORDERED: fentaNYL citrate 100 MCG/2 ML VIAL IV STA ×2 (13:17→13:59)
[2021-03-27] MEDS ORDERED: ONDANSETRON INJ 2 MG/ML 2 ML VIAL IV STA (13:17)
[2021-03-27] MEDS ORDERED: ONDANSETRON INJ 2 MG/ML 2 ML VIAL ONE ×3 (13:19→16:51)
[2021-03-27] MEDS ORDERED: fentaNYL citrate 100 MCG/2 ML VIAL ONE ×3 (13:19→16:36)
[2021-03-27 13:26] LABS: Basophils # (auto) 0.04 K/uL (0-0.2); Basophils % (auto) 0.2 %; Eosinophils # (auto) 0.05 K/uL (0-0.5); Eosinophils % (auto) 0.2 %; Hematocrit (blood only) 34.5 % (37-47); Hemoglobin 11.6 g/dL (12.0-16.0); Immature Granulocytes # (auto) 0.08 K/uL (0.00-0.02); Immature Granulocytes % (auto) 0.4 %; Lymphocytes # (auto) 1.31 K/uL (1.2-3.4); Lymphocytes % (auto) 6.3 %; Mean Corpuscular Hemoglobin 31.1 pg (25-34); Mean Corpuscular Hgb Conc 33.6 g/dL (32-36); Mean Corpuscular Volume 92.5 fL (80-100); Mean Platelet Volume 9.1 fL (7.4-10.4); Monocytes # (auto) 1.03 K/uL (0.11-0.59); Neutrophils # (auto) 18.25 K/uL (1.4-6.5); Neutrophils % (auto) 87.9 %; Platelet Count 267 K/uL (130-400); RDW Coefficient of Variation 12.6 % (11.5-14.5); RDW Standard Deviation 42.5 fL (36.4-46.3); Red Blood Count 3.73 M/uL (4.2-5.4); White Blood Count 20.76 K/uL (4.8-10.8)
[2021-03-27 13:29] LABS: iSTAT Creatinine 0.6 mg/dl (0.6-1.3); iSTAT Hemoglobin 11.6 g/dl (12.0-16.0); iSTAT Ionized Calcium 1.21 mmol/l (1.12-1.32)
[2021-03-27 13:36] LABS: Partial Thromboplastin Ratio 0.8; Partial Thromboplastin Time 21.9 Seconds (21.0-31.0); Prothrombin Time 10.3 Seconds (9.0-12.0)
[2021-03-27] MEDS ORDERED: MIDAZOLAM HCL 1 MG/ML 2ML VIAL ONE (13:40)
[2021-03-27] MEDS ORDERED: PROPOFOL IV EMULSION 10 MG/ML 20 ML VIAL IV ONE (13:40)
[2021-03-27] MEDS ORDERED: LIDOCAINE 2% 2 ML VIAL/AMP(20MG/ML) INFIL ONE (13:40)
[2021-03-27] MEDS ORDERED: DEXAMETHASONE SOD INJ 4 MG/ML VIAL ONE (13:40)
[2021-03-27] MEDS ORDERED: ROCURONIUM BROMIDE 10 MG/ML 5 ML VIAL IV ONE (13:40)
[2021-03-27 13:42] LABS: Alanine Aminotransferase 29 U/L (12-78); Albumin Level 3.5 gm/dl (3.4-5.0); Aspartate Aminotransferase 13 U/L (15-37); BUN Creatinine Ratio 13.1 (10-20); Blood Urea Nitrogen 11 mg/dl (7-18); Carbon Dioxide 22 mmol/L (21-32); Chloride 106 mmol/L (98-107); Est GFR (African American) 116.3 ml/min; Est GFR (Non-African American) 100.3 ml/min; Glucose 121 mg/dl (70-99); Lipase 58 U/L (73-393); Potassium 3.7 mmol/L (3.5-5.1); Sodium 136 mmol/L (136-145)
[2021-03-27] MEDS ORDERED: ACETAMINOPHEN 1000 MG/100 ML IV IV ONE (13:42)
[2021-03-27 13:45] LABS: Albumin Globulin Ratio 1.1 (0.9-2); Alkaline Phosphatase 54 U/L (45-117); Bilirubin,Total 0.5 mg/dl (0.2-1); Globulin 3.2 gm/dl (2.5-4.0); Total Protein 6.7 gm/dl (6.4-8.2)
[2021-03-27] MEDS ORDERED: ePHEDrine sulfate 50 MG/ML AMP IV PRN (13:58)
[2021-03-27] MEDS ORDERED: ONDANSETRON INJ 2 MG/ML 2 ML VIAL IV PRN ×2 (13:58→14:45)
[2021-03-27] MEDS ORDERED: HYDROmorphone INJ 1 MG/ML SYRINGE IV PRN (13:58)
[2021-03-27] MEDS ORDERED: PROMETHAZINE HCL 6.25 MG in SODIUM CHLORIDE 0.9% 50 ML IV PRN (13:58)
[2021-03-27] MEDS ORDERED: ATROPINE SULFATE 0.1 MG/ML 10ML SYR IV PRN (13:58)
[2021-03-27] MEDS ORDERED: ALBUMIN HUMAN 5% 12.5 GM/250 ML VIAL IV ONE (13:59)
--- NOTE | 2021-03-27 14:01 | Anesthesiology Consultation ---
Date of Service March 27, 2021 Assessment & Plan (1) Encounter for pre-operative examination: Chart Review Chart Review: Acceptable Risk for Surgery and Patient NOT seen in Pre Admission Testing Consults Requested none History Surgery Operation Date: 03/27/21 15:00 Proposed Procedures p Laparoscopic Operative, Possible Laparotomy - Osman Pringle MD Height/Weight Height: 5 ft 2 in Weight: 58.967 kg Allergies Allergy/AdvReac Type Severity Reaction Status Date / Time pollen extracts Allergy Unknown UNKNOWN Unverified 09/16/19 11:55 Dust Allergy Unknown UNKNOWN Uncoded 09/16/19 11:55 Medications Home Medications Medication Instructions Recorded Confirmed Last Taken albuterol sulfate 90 mcg/actuation 2 puff INHALATION QID PRN 09/09/19 09/16/19 Unknown aerosol inhaler Past Medical History Medical History Encounter for pre-operative examination No pertinent family history No significant past medical history Exercise / Class Metabolic Activity II 4-5 Yardwork/Stairs/Walk up hill Past Surgical History Surgical History No significant past surgical history Past Anesthesia History No Hx of Anesthesia Complications and No Family Hx of Anesthesia Complications History of PONV No Hx of PONV and No Hx of Motion Sickness Social History Smoking Status: Former smoker Hx Alcohol Use: No Hx Substance Use: No Physical Exam Vital Signs Last Vital Signs Temp 36.6 C 03/27/21 14:36 Pulse 102 H 03/27/21 14:36 Resp 16 03/27/21 14:36 BP 104/67 03/27/21 14:36 Pulse Ox 100 03/27/21 14:36 Testing Laboratory Results 03/27/21 13:05 03/27/21 13:05 PT 10.3 Seconds (9.0-12.0) 03/27/21 13:05 INR 1.0 (0.9-1.1) 03/27/21 13:05 APTT 21.9 Seconds (21.0-31.0) 03/27/21 13:05 HCG, Quant 39640 mIU/ml 03/27/21 13:05 Urine Color Dark Yellow 03/27/21 13:43 Urine Appearance Clear (Clear) 03/27/21 13:43 Urine pH 6.5 (4.5-7.5) 03/27/21 13:43 Ur Specific [place] 1.024 (1.000-1.030) 03/27/21 13:43 Urine Protein Trace (Negative) H 03/27/21 13:43 Urine Glucose (UA) Negative (Negative) 03/27/21 13:43 Urine Ketones Trace (Negative) H 03/27/21 13:43 Urine Nitrite Negative (Negative) 03/27/21 13:43 Ur Leukocyte Esterase Negative (Negative) 03/27/21 13:43 Urine WBC (Auto) 1-5 /hpf (0-5) 03/27/21 13:43 Urine RBC (Auto) 0-4 /hpf (0-4) 03/27/21 13:43 U Hyaline Cast (Auto) 10-30 /lpf (0-5) H 03/27/21 13:43 U Epithel Cells (Auto) >30 /lpf (0-5) H 03/27/21 13:43 Urine Bacteria (Auto) Negative (Negative) 03/27/21 13:43 Blood Type A Positive 03/27/21 13:05 Antibody Screen NEGATIVE 03/27/21 13:05 03/27/21 13:15 POC Glucose (other) 118 H 03/27/21 13:05 HCG, Quant [id number]
[2021-03-27 14:17] LABS: Appearance Urine Clear (Clear); Bacteria Urine Automated Negative (Negative); Bilirubin Urine Negative (Negative); Blood Urine Negative (Negative); Color Urine Dark Yellow; Epithelial Cell Urine Auto >30 /lpf (0-5); Glucose Urine UA Negative (Negative); Ketones Urine Trace (Negative); Leukocyte Esterase Urine Negative (Negative); Nitrite Urine Negative (Negative); Protein Urine Trace (Negative); RBC Urine Automated 0-4 /hpf (0-4); Specific Gravity Urine 1.024 (1.000-1.030); Urobilinogen Urine Negative (Negative); pH Urine 6.5 (4.5-7.5)
--- NOTE | 2021-03-27 14:26 | Ultrasound Report ---
ULTRASOUND OF THE PELVIS CLINICAL HISTORY: Pelvic pain. Reportedly 7.5 weeks . COMPARISON STUDY: No priors. TECHNIQUE: Portable real-time, grayscale, and color flow sonography of the pelvis is performed both t ransabdominally and endovaginally. Images are reviewed in the transverse and longitudinal planes. End ovaginal examination was performed for better assessment of the adnexa. The examination is severely t echnically degraded. FINDINGS: Complex free fluid in the cul-de-sac is consistent with blood products. Fluid is also seen in the upp er abdomen. A normal uterus and ovaries are not well delineated. There is a large complex echogenic s tructure with a central cystic component in the left adnexa which measures 9.5 x 5.7 x 7.4 cm. Additi onally, there is a questionably separate structure in the left adnexa measuring 5.9 x 4.1 x 5.6 cm wh ich may represent an abnormal gestational sac with a possible pole. This is not located within the uterus and a ruptured ectopic is the diagnosis of exclusion. IMPRESSION: 1. Severely technically compromised examination. 2. Findings are highly suspicious for a ruptured ectopic , likely related to the left cornua /adnexa. Surgical assessment is advised. 3. There is a moderate volume of complex free fluid in the pelvis consistent with blood products. Flu id is also seen in the upper abdomen. ACT 112: Negative or not required by law. Electronically signed by: Lj Grant M.D. 03/27/2021 2:25 PM
--- NOTE | 2021-03-27 14:44 | History & Physical Report ---
Date of Service March 27, 2021 Assessment & Plan (1) Ruptured left tubal ectopic causing hemoperitoneum: Plan: Operative laparoscopy with possible laparotomy History of Present Illness Chief Complaint: abdominal pain Primary Care Provider: Osman Pringle MD 26 F with onset of abdominal pain at 2 AM presents with severe generalized epigastric and RUQ pain. BP and vitals stable but hypotensive. Allergies Allergy/AdvReac Type Severity Reaction Status Date / Time pollen extracts Allergy Unknown UNKNOWN Unverified 09/16/19 11:55 Dust Allergy Unknown UNKNOWN Uncoded 09/16/19 11:55 Home Medications Medication Instructions Recorded Confirmed Type albuterol sulfate 90 mcg/actuation 2 puff INHALATION QID PRN 09/09/19 09/16/19 History aerosol inhaler Patient History Medical History Encounter for pre-operative examination No pertinent family history No significant past medical history Surgical History No significant past surgical history Social History Smoking Status: Former smoker Preferred Language: Pakistani marital status: Single Current Living Situation: Family current occupational status: employed Feels Safe at Home: Yes OB History spontaneous ab x3 [employer] BLASTING History see above Review of Systems All systems reviewed & are unremarkable except as noted in HPI & below Physical Exam Constitutional: WD/WN, vitals as above Respiratory: normal respiratory effort, lungs clear to auscultation Cardiovascular: RRR, no murmur, no edema Gastrointestinal (Abdomen): abdomen is tender with guarding and rebound Skin: no rashes, warm and dry Neurologic: patellar DTR's 2+ bilat, sensation intact Psychiatric: A+Ox3, euthymic affect Genitourinary: no vaginal bleeding Results & Data ([facility]) Vital Signs (Past 12 Hours) Vital Signs Temp Pulse Pulse Resp BP BP Pulse Ox 03/27/21 14:36 36.6 C 102 H 16 104/67 100 03/27/21 13:50 97 H 22 123/69 100 03/27/21 13:45 93 H 25 H 126/63 100 03/27/21 13:40 100 H 16 120/67 100 03/27/21 12:41 35.9 C L 96 H 20 92/44 L 100 Laboratory Results Laboratory Results - last 72 hr 03/27/21 03/27/21 03/27/21 13:05 13:05 13:05 WBC 20.76 H RBC 3.73 L Hgb 11.6 L POC Hgb Hct 34.5 L POC Hct MCV 92.5 MCH 31.1 MCHC 33.6 RDW Std Deviation 42.5 RDW Coeff of Renard 12.6 Plt Count 267 MPV 9.1 Immature Gran % (Auto) 0.4 Neut % (Auto) 87.9 Lymph % (Auto) 6.3 [place] % (Auto) 5.0 Eos % (Auto) 0.2 Baso % (Auto) 0.2 Neut # (Auto) 18.25 H Lymph # (Auto) 1.31 [place] # (Auto) 1.03 H Eos # (Auto) 0.05 Baso # (Auto) 0.04 Immature Gran # (Auto) 0.08 H PT INR APTT PTT Ratio POC Sodium Sodium 136 POC Potassium Potassium 3.7 POC Chloride Chloride 106 Carbon Dioxide 22 POC Total CO2 Anion Gap 9.0 POC Anion Gap POC BUN BUN 11 Creatinine 0.80 POC Creatinine Est Cr Clr Drug Dosing Not Reportable Est GFR ( Amer) 116.3 Est GFR (Non-Af Amer) 100.3 BUN/Creatinine Ratio 13.1 Glucose 121 H POC Glucose (other) Calcium 9.0 POC Ioniz Calcium Carlos Total Bilirubin 0.5 AST 13 L ALT 29 Alkaline Phosphatase 54 Total Protein 6.7 Albumin 3.5 Globulin 3.2 Albumin/Globulin Ratio 1.1 Lipase 58 L HCG, Quant Urine Color Urine Appearance Urine pH Ur Specific Mercer Urine Protein Urine Glucose (UA) Urine Ketones Urine Blood Urine Nitrite Urine Bilirubin Urine Urobilinogen Ur Leukocyte Esterase Urine WBC (Auto) Urine RBC (Auto) U Hyaline Cast (Auto) U Epithel Cells (Auto) Urine Bacteria (Auto) COVID-19 Eval Order Blood Type A Positive Antibody Screen NEGATIVE Crossmatch See Detail 03/27/21 03/27/21 03/27/21 13:05 13:05 13:15 WBC RBC Hgb POC Hgb 11.6 L Hct POC Hct 34 L MCV MCH MCHC RDW Std Deviation RDW Coeff of Renard Plt Count MPV Immature Gran % (Auto) Neut % (Auto) Lymph % (Auto) [place] % (Auto) Eos % (Auto) Baso % (Auto) Neut # (Auto) Lymph # (Auto) [place] # (Auto) Eos # (Auto) Baso # (Auto) Immature Gran # (Auto) PT 10.3 INR 1.0 APTT 21.9 PTT Ratio 0.8 POC Sodium 136 Sodium POC Potassium 4.0 Potassium POC Chloride 102 Chloride Carbon Dioxide POC Total CO2 21 L Anion Gap POC Anion Gap 18.0 POC BUN 10 BUN Creatinine POC Creatinine 0.6 Est Cr Clr Drug Dosing Est GFR ( Amer) Est GFR (Non-Af Amer) BUN/Creatinine Ratio Glucose POC Glucose (other) 118 H Calcium POC Ioniz Calcium Carlos 1.21 Total Bilirubin AST ALT Alkaline Phosphatase Total Protein Albumin Globulin Albumin/Globulin Ratio Lipase HCG, Quant 20629 Urine Color Urine Appearance Urine pH Ur Specific Mercer Urine Protein Urine Glucose (UA) Urine Ketones Urine Blood Urine Nitrite Urine Bilirubin Urine Urobilinogen Ur Leukocyte Esterase Urine WBC (Auto) Urine RBC (Auto) U Hyaline Cast (Auto) U Epithel Cells (Auto) Urine Bacteria (Auto) COVID-19 Eval Order Blood Type Antibody Screen Crossmatch 03/27/21 03/27/21 13:33 13:43 WBC RBC Hgb POC Hgb Hct POC Hct MCV MCH MCHC RDW Std Deviation RDW Coeff of Renard Plt Count MPV Immature Gran % (Auto) Neut % (Auto) Lymph % (Auto) [place] % (Auto) Eos % (Auto) Baso % (Auto) Neut # (Auto) Lymph # (Auto) [place] # (Auto) Eos # (Auto) Baso # (Auto) Immature Gran # (Auto) PT INR APTT PTT Ratio POC Sodium Sodium POC Potassium Potassium POC Chloride Chloride Carbon Dioxide POC Total CO2 Anion Gap POC Anion Gap POC BUN BUN Creatinine POC Creatinine Est Cr Clr Drug Dosing Est GFR ( Amer) Est GFR (Non-Af Amer) BUN/Creatinine Ratio Glucose POC Glucose (other) Calcium POC Ioniz Calcium Carlos Total Bilirubin AST ALT Alkaline Phosphatase Total Protein Albumin Globulin Albumin/Globulin Ratio Lipase HCG, Quant Urine Color Dark Yellow Urine Appearance Clear Urine pH 6.5 Ur Specific Mercer 1.024 Urine Protein Trace H Urine Glucose (UA) Negative Urine Ketones Trace H Urine Blood Negative Urine Nitrite Negative Urine Bilirubin Negative Urine Urobilinogen Negative Ur Leukocyte Esterase Negative Urine WBC (Auto) 1-5 Urine RBC (Auto) 0-4 U Hyaline Cast (Auto) 10-30 H U Epithel Cells (Auto) >30 H Urine Bacteria (Auto) Negative COVID-19 Eval Order Covid19 at [facility] Blood Type Antibody Screen Crossmatch
[2021-03-27] MEDS ORDERED: LACTATED RINGER'S 1,000 ML IV SCH (14:45)
[2021-03-27] MEDS ORDERED: BUPIVACAINE 0.5 % 5 MG/1 ML MPF 30ML VIAL ONE (14:52)
[2021-03-27] MEDS ORDERED: SCOPOLAMINE 1 MG TDSY TD ONE (14:59)
[2021-03-27] MEDS ORDERED: ceFAZolin 2000MG 2,000 MG/15 ML SYR IV ONE (15:39)
[2021-03-27] MEDS ORDERED: GLYCOPYRROLATE 0.2 MG/ML VIAL ONE (16:34)
[2021-03-27] MEDS ORDERED: NEOSTIGMINE METHYLSULFATE 1 MG/ML 10ML VIAL ONE (16:34)
--- NOTE | 2021-03-27 16:48 | Post Operative Brief Note ---
Immediate Post Op Note v1 Date of Surgery March 27, 2021 Pre & Post Diagnosis Operation Date: 03/27/21 15:00 Pre-Op Diagnosis: Ruptured left tubal ectopic causing hemoperitoneum Post-Op Diagnosis: Ruptured left tubal ectopic causing hemoperitoneum I identified the patient and participated in the time-out.: Yes Procedure Operation Date: 03/27/21 15:00 Actual Procedures p Laparoscopic Operative, right salpingectomy - Osman Pringle MD Surgeon Osman Pringle MD Steam Shovel Oiler Dr Elliott Estimated Blood Loss 1,000 Findings Consistent with Post-Op Diagnosis ruptured right ectopic hemoperitoneum Fluids LR 500 ml Albumin 500 ml Specimens right ectopic Drains Riley Catheter (Patient entered OR suite with riley draining and intact.) Anesthesia Type General Complications none Disposition Accompanied Patient To Recovery: Yes Overlapping Procedure I was present for: the critical portions of procedure. I was immediately available: during the entire case. Back up surgeon: used during listed procedure.
[2021-03-27] MEDS ORDERED: KETOROLAC 30 MG/ML VIAL ONE (16:51)
[2021-03-27] MEDS: fentaNYL citrate 100 MCG/2 ML VIAL IV PRN ×4 (17:35→18:05)
--- NOTE | 2021-03-27 17:49 | Anesthesiology Progress Note ---
Date of Service March 27, 2021 Anesthesia Post Procedure Vital Signs Vital Signs: Temp Pulse Pulse Pulse Resp BP BP 03/27/21 17:45 98.4 F 81 12 109/61 03/27/21 17:35 85 19 110/58 L 03/27/21 17:25 77 13 103/71 03/27/21 17:15 85 18 122/75 03/27/21 17:05 102 H 26 H 114/72 03/27/21 16:57 97.5 F L 80 12 115/70 03/27/21 14:50 98.2 F 106 H 22 92/58 L 03/27/21 14:36 97.9 F 102 H 16 104/67 03/27/21 13:50 97 H 22 123/69 03/27/21 13:45 93 H 25 H 126/63 03/27/21 13:40 100 H 16 120/67 03/27/21 12:41 96.6 F L 96 H 20 92/44 L Pulse Ox 03/27/21 17:45 100 03/27/21 17:35 98 03/27/21 17:25 100 03/27/21 17:15 100 03/27/21 17:05 100 03/27/21 16:57 100 03/27/21 14:50 100 03/27/21 14:36 100 03/27/21 13:50 100 03/27/21 13:45 100 03/27/21 13:40 100 03/27/21 12:41 100 Pain Intensity Abdomen: Pain Intensity: 4 Transfer of Care Handoff Completed per policy Notes Mental Status: alert / awake / arousable and participated in evaluation Patient Amnestic to Procedure: Yes Nausea / Vomiting: adequately controlled Pain: adequately controlled Airway Patency, RR, SpO2: stable & adequate BP & HR: stable & adequate Hydration State: stable & adequate Anesthetic Complications: no major complications apparent and Pt Satisfied with anesthetic care
[2021-03-27 18:00] LABS: Hematocrit (blood only) 32.3 % (37-47); Hemoglobin 10.7 g/dL (12.0-16.0); Mean Corpuscular Hemoglobin 28.8 pg (25-34); Mean Corpuscular Hgb Conc 33.1 g/dL (32-36); Mean Corpuscular Volume 87.1 fL (80-100); Mean Platelet Volume 8.7 fL (7.4-10.4); Platelet Count 142 K/uL (130-400); RDW Coefficient of Variation 15.4 % (11.5-14.5); RDW Standard Deviation 49.5 fL (36.4-46.3); Red Blood Count 3.71 M/uL (4.2-5.4); White Blood Count 14.07 K/uL (4.8-10.8)
[2021-03-27] MEDS ORDERED: ALBUTEROL HFA 8 GM INHALER INH PRN (19:18)
[2021-03-27] MEDS ORDERED: MoRPHine SULFATE 2 MG/ML CARP IV PRN (19:18)
[2021-03-27] MEDS ORDERED: KETOROLAC 30 MG/ML VIAL IV PRN (19:18)
[2021-03-27] MEDS ORDERED: MoRPHine SULFATE 4 MG/ML 1 ML CARP\\VIAL IV PRN (19:18)
[2021-03-27] MEDS ORDERED: oxyCODONE HCL IR 5 MG TAB (IMMEDIATE RELEASE) PO PRN (19:18)
[2021-03-27] MEDS: IBUPROFEN 600 MG TAB PO PRN (19:51)
[2021-03-27] MEDS: LACTATED RINGER'S 1,000 ML IV SCH (20:14)
[2021-03-28] MEDS: LACTATED RINGER'S 1,000 ML IV SCH (06:15)
[2021-03-28] MEDS: IBUPROFEN 600 MG TAB PO PRN (06:18)
[2021-03-28 06:38] LABS: Basophils # (auto) 0.01 K/uL (0-0.2); Basophils % (auto) 0.1 %; Eosinophils # (auto) 0.03 K/uL (0-0.5); Eosinophils % (auto) 0.2 %; Hematocrit (blood only) 24.8 % (37-47); Hemoglobin 8.5 g/dL (12.0-16.0); Immature Granulocytes # (auto) 0.03 K/uL (0.00-0.02); Immature Granulocytes % (auto) 0.2 %; Lymphocytes # (auto) 1.82 K/uL (1.2-3.4); Lymphocytes % (auto) 13.8 %; Mean Corpuscular Hemoglobin 29.7 pg (25-34); Mean Corpuscular Hgb Conc 34.3 g/dL (32-36); Mean Corpuscular Volume 86.7 fL (80-100); Monocytes # (auto) 1.03 K/uL (0.11-0.59); Monocytes % (auto) 7.8 %; Neutrophils # (auto) 10.31 K/uL (1.4-6.5); Neutrophils % (auto) 77.9 %; Platelet Count 142 K/uL (130-400); RDW Coefficient of Variation 16.4 % (11.5-14.5); RDW Standard Deviation 52.4 fL (36.4-46.3); Red Blood Count 2.86 M/uL (4.2-5.4); White Blood Count 13.23 K/uL (4.8-10.8)
--- NOTE | 2021-03-28 06:58 | Gynecologic Progress Note ---
Date of Service March 28, 2021 Assessment & Plan (1) Ruptured right tubal ectopic causing hemoperitoneum: Plan: d/c home today f/u in office next week Admission and Anticipated Discharge Date Admission Date: March 27, 2021 Subjective POD#1 doing well out of bed voiding on own minimal abdominal discomfort Physical Exam Constitutional: WD/WN, vitals as above comfortable Gastrointestinal (Abdomen): Inspection/Auscultation: abdomen normal to inspection Percussion/Palpation: abdomen soft incisions c/d/i no guarding or rebound Skin: no rashes, warm and dry Neurologic: patellar DTR's 2+ bilat, sensation intact Results & Data ([facility]) Vital Signs (Past 12 Hours) Vital Signs Temp Pulse Pulse Resp BP BP Pulse Ox 03/28/21 03:00 36.7 C 75 16 88/52 L 98 03/27/21 23:05 37.0 C 89 18 90/55 L 98 03/27/21 19:30 97 H 18 93/60 L 98 Laboratory Results Abnormal Labs 03/27/21 03/27/21 03/27/21 13:05 13:05 13:05 WBC 20.76 H RBC 3.73 L Hgb 11.6 L POC Hgb Hct 34.5 L POC Hct RDW Std Deviation RDW Coeff of Renard Neut # (Auto) 18.25 H [place] # (Auto) 1.03 H Immature Gran # (Auto) 0.08 H POC Total CO2 Glucose 121 H POC Glucose (other) AST 13 L Lipase 58 L Urine Protein Urine Ketones U Hyaline Cast (Auto) U Epithel Cells (Auto) Crossmatch See Detail 03/27/21 03/27/21 03/27/21 13:15 13:43 17:47 WBC 14.07 H RBC 3.71 L Hgb 10.7 L POC Hgb 11.6 L Hct 32.3 L POC Hct 34 L RDW Std Deviation 49.5 H RDW Coeff of Renard 15.4 H Neut # (Auto) [place] # (Auto) Immature Gran # (Auto) POC Total CO2 21 L Glucose POC Glucose (other) 118 H AST Lipase Urine Protein Trace H Urine Ketones Trace H U Hyaline Cast (Auto) 10-30 H U Epithel Cells (Auto) >30 H Crossmatch 03/28/21 06:24 WBC 13.23 H RBC 2.86 L Hgb 8.5 L POC Hgb Hct 24.8 L POC Hct RDW Std Deviation 52.4 H RDW Coeff of Renard 16.4 H Neut # (Auto) 10.31 H [place] # (Auto) 1.03 H Immature Gran # (Auto) 0.03 H POC Total CO2 Glucose POC Glucose (other) AST Lipase Urine Protein Urine Ketones U Hyaline Cast (Auto) U Epithel Cells (Auto) Crossmatch
--- NOTE | 2021-03-28 19:32 | Operative Report (OR) ---
DATE OF SURGERY: 03/27/2021 PREOPERATIVE DIAGNOSIS: Ruptured left ectopic with hemoperitoneum. POSTOPERATIVE DIAGNOSIS: Ruptured right ectopic with hemoperitoneum. SURGEON: Osman Pringle MD. ASSISTANTS: EVE Thornton and Dr. Elliott. ANESTHESIA: General. PROCEDURE: Laparoscopic operative removal of right ectopic ruptured and a right salpingect nel and evacuation of hemoperitoneum. COMPLICATIONS: None. FINDINGS: 1. Hemoperitoneum. 2. Ruptured right ectopic . 3. 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 COMPLICATIONS: None. ESTIMATED BLOOD LOSS: 1000 mL. FLUIDS: LR 500 mL, albumin 500 mL. SPECIMEN: Right ectopic with tube. Leonard is clear, concentrated. CLINICAL HISTORY: The patient is a 26-year-old female, para 1-0-2-1, who presents to the ER with abd ominal pain that started at 2:00 a.m. last night. Workup revealed presence of a hemoperitoneum. The patient was hypotensive and shocky in the ER. She received IV fluids. Her blood pressure stabilize d. She had an ultrasound, which revealed a hemoperitoneum and presence of an ectopic . The ultrasound was somewhat inconclusive as to the location of the ectopic. I discussed this with the r adiologist prior to the start of the surgery. The patient received blood in the ER due to the fact t hat she became hypotensive. DESCRIPTION OF PROCEDURE: Under satisfactory general anesthesia, the patient was identified, timeout was called. She was prepped and draped in the usual sterile fashion. Antibiotics were given preop. A Leonard catheter was already in place from the ER. Exam under anesthesia revealed minimal vaginal bleeding. The Matilde intrauterine manipulator was inserted under direct visualization with the weighte d speculum placed in the posterior vault of the vagina and a single long Allis clamp placed on the an terior lip of the cervix. Attention was then directed abdominally where 1% Marcaine was then used in fraumbilically. A stab wound with a #11 knife blade was then made. The incision was approximately 2 -3 mm. Veress needle was then placed under direct visualization with hanging drop technique and a 5 mm trocar under direct visualization with the scope used to enter into the abdominal cavity after 3 l iters of carbon dioxide gas were instilled creating the artificial pneumoperitoneum. Upon entering into the abdominal cavity with the trocar and the scope, presence of copious amounts of fluid and blood were noted. Immediately, a second 5 mm port was placed in the midline suprapubically . This was connected to the [place] import dispatcher and copious amounts of blood were suctioned and irrigat ed. The patient was placed in the slight Trendelenburg position, the blood extended up into the uppe r abdomen above the liver and there were noted to be dense adhesions consistent with Pctn-Kwxg-Uikbdl syndrome, violin-like adhesions. The appendix was visualized, was normal. After copious irrigation , the tube was identified on the right, which was behind the uterus towards the left and it was noted to be leaking. This was approximately several centimeters. The ovaries on both the right and left were visualized. They were normal. The tube on the left appeared to be consistent with hematosalpin x. Appendix was normal on the right. A third trocar using a #11 trocar was placed on the right hand side and then with a grasper holding t he tube, the tube was removed on the right. An EndoCatch bag was then placed and the tube with the e ctopic was placed in the bag and then removed from the right-sided port. The tube was identified and the proximal stump of the tube was cauterized with the EndoSeal without any evidence of any bleeding . The abdominal and upper peritoneal cavity were then copiously irrigated. The patient was placed i n steep Trendelenburg position followed by reverse Trendelenburg evacuating most of the hemoperitoneu m. Procedure was documented with still video photography. The contents of the pelvic and abdominal cavity were then free of any bleeding. The #11 port was then closed with a 0 Vicryl suture. The pneumoperitoneum was then removed. The two 5 mm ports were then closed using 3-0 Monocryl sutures. Steri-Strips were applied. The vaginal ins truments were then removed. The estimated blood loss was approximately 1000 mL. Final sponge, needle and instrument count were found to be correct. It should be noted that Dr. Elliott was present during the case, was necessary for assistance at removal of the ectopic, holding the camera, and performing necessary steps in removing and stabilizing the patient for surgery. The patient was then placed y[place] pine on the stretcher. She was taken to recovery room in stable condition. Job ID: [id number]
--- NOTE | 2021-04-05 12:12 | Discharge Summary (DS) ---
DATE OF ADMISSION: 03/27/2021 DATE OF DISCHARGE: 03/28/2021 HOSPITAL COURSE: The patient is a 26-year-old female, para 1-0-2-1, presenting to the ER with abdomin al pain. Her blood pressure was shocky. She was hypotensive. A diagnosis of hemoperitoneum and rupt ured ectopic was made. The patient was taken to the operating room. Ruptured right ectopic was noted with a hemoperitoneum. The patient ended up having a right salpingectomy with e vacuation of hemoperitoneum under laparoscopic procedure. The patient tolerated the procedure well. She was discharged home the following day. She received 2 units of packed RBCs and was stable and fo llow up 1 week post discharge for an incision check. Job ID: [id number]
== END 2021-03-28 09:14 | disposition home or self-care (01) ==
LOC: ED 12:34 → ASU 14:47 → INTOOBSV 14:48 → 4S2 14:48 → ASU 15:18